=== PATIENT | female | born 1995 | race Asian ===

== ENCOUNTER 2016-10-14 08:59 | Emergency (ER) | payer OTHER ==
[~2016-10-14] VITALS: Ht 154.9 cm; Wt 70.5 kg
[2016-10-14 09:04] VITALS: BP 114/65; PULSE 72; TEMP 97.3
[2016-10-14] MEDS ORDERED: AMOXICILLIN875 MG PO (09:06)
[2016-10-14] MEDS ORDERED: PROAIR HFA0.09 MG/AC IH (10:00)
== END 2016-10-14 11:32 | disposition home or self-care (01) ==
LOC: COL.ER 08:59
DX: J06.9 Acute upper respiratory infection, unspecified (principal)

== ENCOUNTER 2017-05-18 22:28 | Emergency (ER) | payer OTHER ==
[~2017-05-18] VITALS: Ht 157.5 cm; Wt 65.9 kg
[~2017-05-18 22:28] MED LIST: AMOXICILLIN875 MG PO; PROAIR HFA0.09 MG/AC IH
[2017-05-18 22:32] VITALS: BP 112/70; TEMP 97.7
[2017-05-18 23:12] LABS: COLLECTION METHOD CLEAN CATCH
[2017-05-18 23:15] LABS: BASO # 0.1 (0.0-0.2); BASO % 0.8 % (0.0-2.0); EOS # 0.1 (0.0-0.7); EOS % 1.1 % (0-4.0); GRAN # 4.7 (1.4-6.5); GRAN % 47.9 % (42.2-75.2); HEMATOCRIT 40.6 % (37.0-47.0); HEMOGLOBIN 12.1 g/dl (12.5-16.0); LYMPH % 40.4 % (20.0-51.0); MEAN CELL VOLUME 66 fl (80.0-100.0); MEAN CORPUSCULAR HEMOGLOBIN 20 pg (27.0-31.0); MEAN CORPUSCULAR HGB CONC 30 g/dl (33.0-37.0); MEAN PLATELET VOLUME 10.8 fl (7.4-10.4); MONO % 9.7 % (1.7-9.3); PLATELET COUNT 324 K/mm3 (130-400); RED BLOOD COUNT 6.15 M/mm3 (4.10-5.30); WHITE BLOOD COUNT 9.8 K/mm3 (4.8-10.8)
[2017-05-18 23:23] LABS: ADJUSTED CALCIUM 9.1 mg/dL (8.4-10.2); ALANINE AMINOTRANSFERASE 31 U/L (9-52); ALBUMIN 4.8 gm/dL (3.5-5.0); ALKALINE PHOSPHATASE 48 U/L (50-136); ANION GAP 11 mmol/L (7-16); BILIRUBIN,TOTAL 0.5 mg/dL (0.0-1.0); BLOOD UREA NITROGEN 13 mg/dL (7-17); C-REACTIVE PROTEIN < 0.5 mg/dL (0.0-0.9); CALCIUM 9.7 mg/dL (8.4-10.2); CARBON DIOXIDE 29 mmol/L (22-30); CHLORIDE 102 mmol/L (98-107); CREATININE, serum 0.61 mg/dL (0.52-1.25); GLUCOSE 94 mg/dL (74-106); LIPASE 60 U/L (23-300); POTASSIUM 3.7 mmol/L (3.4-5.0); SODIUM 142 mmol/L (137-145); TOTAL PROTEIN 8.3 gm/dL (6.4-8.2)
[2017-05-18 23:25] LABS: MUCOUS Present /lpf; PH 5 (5-8); SQUAMOUS EPITHELIAL 0-2 /hpf; URINE APPEARANCE Clear; URINE BACTERIA None Seen /hpf; URINE BILIRUBIN Negative (NEGATIVE); URINE BLOOD Negative (NEGATIVE); URINE COLOR Yellow; URINE GLUCOSE Negative (NEGATIVE); URINE KETONE Negative (NEGATIVE); URINE LEUKOCYTE ESTERASE Negative (NEGATIVE); URINE PROTEIN(semi-quant) Negative (NEGATIVE); URINE RBC 0-2 /hpf; URINE UROBILINOGEN Negative (NEGATIVE); URINE WBC 0-2 /hpf
[2017-05-19 01:32] VITALS: PULSE 76
[2017-05-19 01:42] LABS: CHLAMYDIA/TRACH by PCR Female NOT DETECTED; NEISSERIA GON by PCR Female NOT DETECTED
== END 2017-05-19 01:32 | disposition home or self-care (01) ==
LOC: COL.ER 22:28
PROVIDERS: Emergency Medicine
DX: R10.31 Right lower quadrant pain (principal)
CPT/HCPCS: J1885; J2405; J3010; J7030; J7050; Q9967